=== PATIENT | male | born 1955 | race Caucasian/White ===

== ENCOUNTER 2025-09-22 17:50 | Inpatient (IN) | payer MEDICARE, MEDICAID ==
[~2025-09-22] VITALS: Ht 175.3 cm; Wt 85.3 kg
[2025-09-22 18:30] LABS: PLATELET COUNT (AUTO) 227 K/uL (150-450); RED BLOOD CELL COUNT(AUTO) 5.86 MIL/uL (4.50-5.90); RED CELL DISTRIBUTION WIDTH 13.6 % (11.5-14.5); WHITE BLOOD COUNT (AUTO) 8.2 K/uL (4.5-11.0)
[2025-09-22 18:38] LABS: CALCIUM, TOTAL 9.3 mg/dL (8.8-10.5); CREATININE 0.72 mg/dL (0.60-1.30); GLOMERULAR FILTR. RATE CALC > 60 mL/min (>60); GLUCOSE,RANDOM 114 mg/dL (70-110); SODIUM SERUM 137 mmol/L (136-145); UREA NITROGEN, BLOOD 14 mg/dL (7-18)
[2025-09-22 19:42] VITALS: O2SAT 94
[2025-09-22 20:08] LABS: COVID AG,FIA SOURCE NASAL SWAB
[2025-09-22 20:28] LABS: SARS-COV2 (COVID) ANTIGEN,FIA Negative (Negative)
[2025-09-22] MEDS ORDERED: METF-1211 PO (21:17)
[2025-09-22] MEDS ORDERED: MIRT-89 PO (21:17)
[2025-09-22 21:56] LABS: GLUCOMETER DEV NAME(LOC) ER.7; GLUCOSE,POINT OF CARE 170 MG/DL (70-110)
[2025-09-22] MEDS ORDERED: ZOLPIDEM TARTRATE 10 MG TABLET PO PRN (22:45)
[2025-09-23 00:51] LABS: GLUCOMETER DEV NAME(LOC) BV2X.3; GLUCOSE,POINT OF CARE 148 MG/DL (70-110)
[2025-09-23] MEDS ORDERED: INFLUENZA VIRUS VACCINE TVS (6MO+) 2025-26/PF 45 MCG/0.5 ML SYRINGE IM. ONE (05:30)
[2025-09-23 06:12] VITALS: BP 115/97; PULSE 79; RESP 18; TEMP 98.1; O2SAT 95
[2025-09-23 09:40] VITALS: RESP 16
[2025-09-23] MEDS ORDERED: MAG HYDROX/ALUMINUM HYD/SIMETH ES 30 ML SUSPENSION UDCUP PO PRN (10:00)
[2025-09-23] MEDS ORDERED: OMEPRAZOLE 20 MG CAPSULE PO PRN (10:00)
[2025-09-23] MEDS ORDERED: GLUCAGON,HUMAN RECOMBINANT 1 MG VIAL IM PRN (10:00)
[2025-09-23] MEDS ORDERED: IBUPROFEN 600 MG TABLET PO PRN (10:00)
[2025-09-23] MEDS ORDERED: ONDANSETRON 4 MG TABLET PO PRN (10:00)
[2025-09-23] MEDS ORDERED: PETROLATUM,WHITE 28 GM JELLY TP PRN (10:00)
[2025-09-23] MEDS ORDERED: BACITRACIN 28 GM OINTMENT TP PRN (10:00)
[2025-09-23] MEDS ORDERED: ACETAMINOPHEN 325 MG TABLET PO PRN (10:00)
[2025-09-23] MEDS ORDERED: MAGNESIUM HYDROXIDE SUSPENSION 30 ML UDCUP PO PRN (10:00)
[2025-09-23] MEDS ORDERED: ALBUTEROL SULFATE HFA 90 MCG/PUFF 8 GM INHALER IH PRN (10:00)
[2025-09-23] MEDS ORDERED: DOCUSATE SODIUM 100 MG CAPSULE PO PRN (10:00)
[2025-09-23] MEDS ORDERED: BENZOCAINE/MENTHOL [CEPACOL] LOZENGE PO PRN (10:00)
[2025-09-23] MEDS ORDERED: LOPERAMIDE HCL 2 MG CAPSULE PO PRN (10:00)
[2025-09-23] MEDS ORDERED: MEMA28CA16 PO (10:46)
[2025-09-23] MEDS ORDERED: HYDR-5256 PO (10:46)
[2025-09-23] MEDS ORDERED: DIVA-85 PO (10:46)
[2025-09-23] MEDS ORDERED: LEVO50TA11 PO (10:46)
[2025-09-23] MEDS: DIVALPROEX SODIUM 250 MG ER TABLET PO SCH (11:00)
[2025-09-23] MEDS: MIRTAZAPINE 15 MG TABLET PO SCH (21:00)
[2025-09-24 08:43] VITALS: BP 101/83; PULSE 76; RESP 19; TEMP 98.1; O2SAT 95
[2025-09-24 17:50] LABS: GLUCOMETER DEV NAME(LOC) BV2X.3; GLUCOSE,POINT OF CARE 102 MG/DL (70-110)
[2025-09-24] MEDS: INSULIN LISPRO 100 UNITS/ML SQ PRN (21:15)
[2025-09-24 23:31] LABS: GLUCOMETER DEV NAME(LOC) BV2X.3; GLUCOSE,POINT OF CARE 196 MG/DL (70-110)
[2025-09-25 10:14] VITALS: BP 138/78; PULSE 79; RESP 18; TEMP 98.3; O2SAT 95
[2025-09-26 08:47] VITALS: BP 127/82; PULSE 71; RESP 18; TEMP 98.2; O2SAT 96
[2025-09-26 09:15] LABS: GLUCOMETER DEV NAME(LOC) BV2X.3; GLUCOSE,POINT OF CARE 168 MG/DL (70-110)
[2025-09-26 12:01] LABS: GLUCOMETER DEV NAME(LOC) BV2X.3; GLUCOSE,POINT OF CARE 101 MG/DL (70-110)
[2025-09-26 20:08] VITALS: RESP 18
[2025-09-26 20:50] LABS: GLUCOMETER DEV NAME(LOC) BV2X.3; GLUCOSE,POINT OF CARE 120 MG/DL (70-110)
[2025-09-27 08:15] VITALS: BP 120/100; PULSE 90; RESP 17; TEMP 97.8; O2SAT 96
[2025-09-27] MEDS: LORazepam 2 MG/ML VIAL IM ONE (15:18)
[2025-09-27 20:16] VITALS: RESP 18
[2025-09-28 08:15] VITALS: BP 125/71; PULSE 80; RESP 18; TEMP 97.8; O2SAT 98
[2025-09-28 10:35] LABS: GLUCOMETER DEV NAME(LOC) BV2X.3; GLUCOSE,POINT OF CARE 173 MG/DL (70-110)
[2025-09-28 17:00] LABS: GLUCOMETER DEV NAME(LOC) BV2X.3; GLUCOSE,POINT OF CARE 125 MG/DL (70-110)
[2025-09-28 20:55] LABS: GLUCOMETER DEV NAME(LOC) BV2X.3; GLUCOSE,POINT OF CARE 138 MG/DL (70-110)
[2025-09-28 21:51] VITALS: BP 110/72; PULSE 88; RESP 18; TEMP 97.8; O2SAT 95
[2025-09-29 08:15] VITALS: BP 117/80; PULSE 75; RESP 18; TEMP 98.1; O2SAT 99
[2025-09-29 19:57] VITALS: BP 130/84; PULSE 110; RESP 18; TEMP 98.2; O2SAT 92
[2025-09-29 22:31] VITALS: BP 130/84; PULSE 110; RESP 18; TEMP 98.2; O2SAT 98
[2025-09-30 10:11] LABS: GLUCOMETER DEV NAME(LOC) BV2X.3; GLUCOSE,POINT OF CARE 124 MG/DL (70-110)
[2025-09-30] MEDS ORDERED: DIVA-85 PO (12:10)
[2025-09-30 13:15] VITALS: PULSE 98
== END 2025-09-30 14:59 | DRG 885 ==
LOC: EMS 17:52 → B2X 23:09
PROVIDERS: ADMIT Psychiatry & Neurology Psychiatry; ATTEND Psychiatry & Neurology Psychiatry
PROC: GZHZZZZ Group Psychotherapy (ICD-10-PCS; principal; 2025-09-23)
PROC: GZ52ZZZ Individual Psychotherapy, Cognitive (ICD-10-PCS; 2025-09-23)
DX: F33.1 Major depressive disorder, recurrent, moderate (principal); F02.818 Dementia in other diseases classified elsewhere, unspecified severity, with other behavioral disturbance; E11.9 Type 2 diabetes mellitus without complications; I10 Essential (primary) hypertension; E03.9 Hypothyroidism, unspecified; F20.0 Paranoid schizophrenia; F02.83 Dementia in other diseases classified elsewhere, unspecified severity, with mood disturbance; Z20.822 Contact with and (suspected) exposure to COVID-19; G30.9 Alzheimer's disease, unspecified; K59.00 Constipation, unspecified; K21.9 Gastro-esophageal reflux disease without esophagitis; G47.00 Insomnia, unspecified; E78.5 Hyperlipidemia, unspecified; F29 Unspecified psychosis not due to a substance or known physiological condition; Z79.899 Other long term (current) drug therapy
CPT/HCPCS: 80048; 82962; 85025; 87081; 99285; G0480; J1200; J1630; J2060

== ENCOUNTER 2025-10-08 03:24 | Emergency (ER) | payer MEDICARE, OTHER ==
[~2025-10-08] VITALS: Ht 165.1 cm; Wt 90.9 kg
[~2025-10-08 03:24] MED LIST: DIVA-85 PO; HYDR-5256 PO; METF-1211 PO; MIRT-89 PO
[2025-10-08 03:30] VITALS: TEMP 98.9
[2025-10-08 04:27] LABS: COVID AG,FIA SOURCE NASAL SWAB; SARS-COV2 (COVID) ANTIGEN,FIA Negative (Negative)
[2025-10-08 04:27] LABS: PLATELET COUNT (AUTO) 216 K/uL (150-450); RED BLOOD CELL COUNT(AUTO) 5.71 MIL/uL (4.50-5.90); RED CELL DISTRIBUTION WIDTH 13.1 % (11.5-14.5); WHITE BLOOD COUNT (AUTO) 9.2 K/uL (4.5-11.0)
[2025-10-08 04:35] LABS: CALCIUM, TOTAL 9.1 mg/dL (8.8-10.5); CREATININE 0.75 mg/dL (0.60-1.30); GLOMERULAR FILTR. RATE CALC > 60 mL/min (>60); GLUCOSE,RANDOM 131 mg/dL (70-110); SODIUM SERUM 137 mmol/L (136-145); UREA NITROGEN, BLOOD 14 mg/dL (7-18)
[2025-10-08 04:35] LABS: GLUCOMETER DEV NAME(LOC) ERT.7; GLUCOSE,POINT OF CARE 133 MG/DL (70-110)
[2025-10-08 04:52] LABS: ALCOHOL, BLOOD (SERUM) < 3 mg/dL (0-10)
[2025-10-08 05:11] LABS: ASPARTATE AMINOTRANSFERASE 23 U/L (15-37); TOTAL PROTEIN, SERUM 7.5 g/dL (6.4-8.2)
[2025-10-08 07:11] VITALS: BP 119/74; PULSE 63; RESP 15; O2SAT 94
== END 2025-10-08 08:37 | disposition home or self-care (01) ==
LOC: EMS 03:24
DX: R45.1 Restlessness and agitation (principal); F20.9 Schizophrenia, unspecified; E03.8 Other specified hypothyroidism; F41.9 Anxiety disorder, unspecified; E11.9 Type 2 diabetes mellitus without complications; F32.A Depression, unspecified; K21.9 Gastro-esophageal reflux disease without esophagitis; F03.911 Unspecified dementia, unspecified severity, with agitation; F03.93 Unspecified dementia, unspecified severity, with mood disturbance; F03.94 Unspecified dementia, unspecified severity, with anxiety; Z79.899 Other long term (current) drug therapy; Z20.822 Contact with and (suspected) exposure to COVID-19
CPT/HCPCS: 99283; 87426; 80048; 80076; 82962; 85025; 36415; G0480